=== PATIENT | female | born 1955 | race Caucasian/White ===

== ENCOUNTER 2022-01-28 14:03 | Inpatient (IN) | payer OTHER ==
[~2022-01-28] VITALS: Ht 162.6 cm; Wt 79.4 kg
[2022-01-28 14:41] VITALS: BP 134/79
--- NOTE | 2022-01-28 18:57 | NUR ---
66F presents to ED with c/o generalized weakness and dizziness x4days. Pt reports PCP recently changed her Rx to Lasix, after med change, pt states she has been feeling weak. Pt reports intermittent, throbbing like, 7/10 pain to feet bilaterally. Upon assessment, feet appear red, no swelling noted. Pt placed on bedside monitor, bed at lowest position, side rails x1.
--- NOTE | 2022-01-28 19:20 | NUR ---
Pt report given to ROQUE Daley. Transfer of care at this time.
[2022-01-28] MEDS ORDERED: ACETAMINOPHEN EXTRA STRENGTH 500 MG TAB PO ONE (19:45)
[2022-01-28 20:06] LABS: BASOPHILS % (AUTO) 0.3 % (0.0-2.0); EOSINOPHILS % (AUTO) 0.2 % (0.0-4.0); HEMOGLOBIN 10.9 g/dL (12.0-16.0); LYMPHOCYTES # (AUTO) 1.1 K/uL (2.5-16.5); LYMPHOCYTES % (AUTO) 32.4 % (20.5-51.1); MEAN CORPUSCULAR HEMOGLOBIN 27 pg (27-31); MEAN CORPUSCULAR HGB CONC 33 g/dL (33-37); MEAN CORPUSCULAR VOLUME 82.6 fL (80-94); MONOCYTES # (AUTO) 0.7 K/uL (0.8-1.0); NEUTROPHILS # (AUTO) 1.5 K/uL (1.8-7.7); NEUTROPHILS % (AUTO) 45.1 % (42.2-75.2); PLATELET COUNT (AUTO) 230 K/uL (140-450); RED CELL DISTRIBUTION WIDTH 15.3 % (11.6-13.7); WHITE BLOOD COUNT (AUTO) 3.3 K/uL (4.8-10.8)
[2022-01-28 20:23] LABS: ALBUMIN 3.4 g/dL (3.4-5.0); ANION GAP 8.7 (8-16); ASPARTATE AMINOTRANSFERASE 37 U/L (15-37); CARBON DIOXIDE 36.9 mmol/L (21-32); CHLORIDE 87 mmol/L (98-107); CREATININE 0.8 mg/dL (0.6-1.3); GFR ARICAN-AMERICAN 92 mL/min (>90); GLUCOSE 103 mg/dL (74-106); MAGNESIUM 1.3 mg/dL (1.8-2.4); SODIUM SERUM 130 mmol/L (136-145); TOTAL BILIRUBIN 0.6 mg/dL (0.0-1.0); UREA NITROGEN, BLOOD 16 mg/dL (7-18)
[2022-01-28 20:24] LABS: POTASSIUM 2.6 mmol/L (3.5-5.1)
--- NOTE | 2022-01-28 20:25 | NUR ---
POTASSIUM OF 2.6 CRITICAL LAB VALUE HAS BEEN RECIEVED FROM LAB AND DR. MEJIA HAS BEEN UPDATED ON CRITICAL LAB VALUE. PROBABLE ADMISSION WILL BE NECESSARY PER DR. MEJIA.
[2022-01-28] MEDS ORDERED: POTASSIUM CHLORIDE 10 MEQ TABER PO ONE (20:40)
[2022-01-28] MEDS ORDERED: KCL 20 MEQ/WATER INJ PREMIX 100 ML IV ONE (20:40)
--- NOTE | 2022-01-28 20:54 | NUR ---
PT. REFUSED IV POTASSIUM BECAUSE IT MACKEY HER ARM TOO MUCH. DR. MEJIA AWARE.
--- NOTE | 2022-01-28 21:03 | NUR ---
PT WAS SWABBED AND TAKEN TO LAB
[2022-01-28] MEDS ORDERED: FURO-570 PO (23:59)
[2022-01-28] MEDS ORDERED: LEVO0.1331 PO (23:59)
[2022-01-28] MEDS ORDERED: EZET10TA14 PO (23:59)
[2022-01-28] MEDS ORDERED: ATOR20TA PO (23:59)
[2022-01-28] MEDS ORDERED: QUET400T PO (23:59)
[2022-01-28] MEDS ORDERED: POTA10TA70 PO (23:59)
[2022-01-28] MEDS ORDERED: PRAM0.5T4 PO (23:59)
[2022-01-28] MEDS ORDERED: LEVO0.155 PO (23:59)
[2022-01-28] MEDS ORDERED: CETI1SOL12 PO (23:59)
[2022-01-28] MEDS ORDERED: HYDR-5080 PO (23:59)
[2022-01-28] MEDS ORDERED: ESCI20TA PO (23:59)
[2022-01-29] MEDS ORDERED: ACETAMINOPHEN 325 MG TAB PO PRN (00:50)
[2022-01-29] MEDS ORDERED: DOCUSATE SODIUM 100 MG GELCAP PO PRN (00:50)
[2022-01-29] MEDS ORDERED: POTASSIUM CHLORIDE 10 MEQ TABER PO PRN ×2 (00:50→15:10)
[2022-01-29] MEDS ORDERED: SODIUM PHOS / POTASSIUM PHOS 1 PKT PDR PO PRN (00:50)
[2022-01-29] MEDS ORDERED: NACL 0.9% 1,000 ML IV SCH (00:50)
[2022-01-29] MEDS ORDERED: ONDANSETRON 4 MG/2 ML VIAL IM/IVP PRN (00:50)
[2022-01-29] MEDS ORDERED: MAGNESIUM OXIDE 400 MG TAB PO PRN (00:50)
[2022-01-29] MEDS ORDERED: LEVOTHYROXINE 0.075 MG TAB PO SCH (06:30)
[2022-01-29] MEDS ORDERED: LEVOTHYROXINE 0.05 MG TAB ONE (06:35)
[2022-01-29] MEDS ORDERED: LEVOTHYROXINE 0.1 MG TAB ONE (06:35)
[2022-01-29] MEDS: MORPHINE SULFATE 2 MG/ML SYR IVP PRN ×3 (06:40→20:37)
[2022-01-29 08:06] LABS: BASOPHILS % (AUTO) 0.6 % (0.0-2.0); EOSINOPHILS % (AUTO) 0.7 % (0.0-4.0); HEMATOCRIT 34.1 % (36-48); HEMOGLOBIN 11.5 g/dL (12.0-16.0); MEAN CORPUSCULAR HEMOGLOBIN 28 pg (27-31); MEAN CORPUSCULAR HGB CONC 34 g/dL (33-37); MEAN CORPUSCULAR VOLUME 83.5 fL (80-94); MONOCYTES # (AUTO) 0.8 K/uL (0.8-1.0); MONOCYTES % (AUTO) 23.9 % (1.7-9.3); NEUTROPHILS # (AUTO) 1.3 K/uL (1.8-7.7); NEUTROPHILS % (AUTO) 42.8 % (42.2-75.2); PLATELET COUNT (AUTO) 222 K/uL (140-450); RED BLOOD CELL COUNT(AUTO) 4.08 MIL/uL (4.20-5.40); RED CELL DISTRIBUTION WIDTH 15.1 % (11.6-13.7); WHITE BLOOD COUNT (AUTO) 3.1 K/uL (4.8-10.8)
[2022-01-29] MEDS: ESCITALOPRAM 20 MG TAB PO SCH (08:10)
[2022-01-29] MEDS: ATORVASTATIN 20 MG TAB PO SCH (08:10)
[2022-01-29] MEDS: HYDROcodone/APAP 5/325 MG 1 TAB TAB PO PRN ×3 (08:11→21:45)
[2022-01-29] MEDS: PANTOPRAZOLE 40 MG TABEC PO SCH (08:12)
[2022-01-29 09:10] LABS: MAGNESIUM 1.6 mg/dL (1.8-2.4); THYROID STIMULATING HORMONE 0.02 uIU/mL (0.34-3.74)
[2022-01-29] MEDS: EZETIMIBE 10 MG TAB PO SCH (09:47)
[2022-01-29] MEDS: MAGNESIUM OXIDE 400 MG TAB PO SCH ×2 (10:21→12:59)
[2022-01-29 12:44] LABS: ANION GAP 16.8 (8-16); CARBON DIOXIDE 30.8 mmol/L (21-32); CREATININE 0.7 mg/dL (0.6-1.3)
--- NOTE | 2022-01-29 12:52 | NUR ---
PT KEEPS ASKING LASIX FOR ROUTINE USE. DR. FOSS TALKED WITH PT FOR HOLDING THE LASIX.
[2022-01-29 12:53] LABS: POTASSIUM 2.6 mmol/L (3.5-5.1)
--- NOTE | 2022-01-29 13:00 | NUR ---
K+ LOW STILL. K-RIDER 20MEQ GIVEN PO. LONG WITH MG+ PO.
[2022-01-29] MEDS ORDERED: POTASSIUM CHLORIDE 40 MEQ, LIDOCAINE 1% 25 MG in NACL 0.9% 250 ML IV SCH (14:00)
[2022-01-29] MEDS ORDERED: SENNA 8.6 MG TAB PO PRN (15:15)
[2022-01-29] MEDS ORDERED: QUEtiapine FUMARATE 100 MG TAB PO SCH (21:00)
[2022-01-29] MEDS ORDERED: PRAMIPEXOLE 0.5 MG TAB PO SCH (21:00)
[2022-01-30] MEDS ORDERED: LEVOTHYROXINE 0.1 MG TAB PO SCH ×2 (06:30)
[2022-01-30] MEDS ORDERED: LEVOTHYROXINE 0.025 MG, LEVOTHYROXINE 0.1 MG PO SCH ×2 (06:30)
[2022-01-30] MEDS ORDERED: LEVOTHYROXINE 0.05 MG TAB ONE ×2 (06:47→06:48)
[2022-01-30] MEDS ORDERED: LEVOTHYROXINE 0.1 MG TAB ONE (06:47)
[2022-01-30] MEDS: MORPHINE SULFATE 2 MG/ML SYR IVP PRN (07:01)
[2022-01-30] MEDS: HYDROcodone/APAP 5/325 MG 1 TAB TAB PO PRN (07:02)
--- NOTE | 2022-01-30 07:17 | NUR ---
Pt report given to ROQUE POLLOCK. Transfer of care at this time.
[2022-01-30 07:44] LABS: HEMATOCRIT 33.8 % (36-48); HEMOGLOBIN 11.1 g/dL (12.0-16.0); MEAN CORPUSCULAR HEMOGLOBIN 28 pg (27-31); MEAN CORPUSCULAR HGB CONC 33 g/dL (33-37); MEAN CORPUSCULAR VOLUME 84.4 fL (80-94); PLATELET COUNT (AUTO) 216 K/uL (140-450); RED CELL DISTRIBUTION WIDTH 15.7 % (11.6-13.7); WHITE BLOOD COUNT (AUTO) 2.8 K/uL (4.8-10.8)
[2022-01-30 08:10] LABS: ANION GAP 9.1 (8-16); CARBON DIOXIDE 35.6 mmol/L (21-32); CREATININE 0.9 mg/dL (0.6-1.3); POTASSIUM 3.7 mmol/L (3.5-5.1)
[2022-01-30 08:29] LABS: BASOPHILS % (MANUAL) 0 % (0-2); BLASTS, MANUAL % 0 % (0-0); EOSINOPHILS % (MANUAL) 1 % (0-4); LYMPHOCYTES % (MANUAL) 52 % (20-46); METAMYELOCYTES % 0 % (0-0); MONOCYTES % (MANUAL) 25 % (5-12); MYELOCYTES % 0 % (0-0); OTHER CELLS,MANUAL % 0 (0-0); PROMYELOCYTES % 0 % (0-0)
[2022-01-30 08:30] LABS: BUFFY COAT SMEAR PREP N
[2022-01-30] MEDS: PANTOPRAZOLE 40 MG TABEC PO SCH ×2 (09:00→10:10)
[2022-01-30] MEDS: DOCUSATE SODIUM 100 MG GELCAP PO SCH ×2 (09:00→10:11)
[2022-01-30] MEDS: EZETIMIBE 10 MG TAB PO SCH ×2 (09:00→10:09)
[2022-01-30] MEDS: ATORVASTATIN 20 MG TAB PO SCH ×2 (09:00→10:10)
[2022-01-30] MEDS: ESCITALOPRAM 20 MG TAB PO SCH ×2 (09:00→10:10)
--- NOTE | 2022-01-30 10:35 | NUR ---
PATIENT HAS BEEN SCREENED AND CATEGORIZED MODERATE NUTRITION RISK. PATIENT WILL BE SEEN WITHIN 3-5 DAYS OF ADMISSION. 02/01/[address]
[2022-01-30] MEDS ORDERED: FURO-572 PO (13:14)
[2022-01-30] MEDS ORDERED: LEVO0.1331 PO (13:14)
[2022-01-30] MEDS ORDERED: SPIR50TA4 PO (13:14)
[2022-01-30] MEDS ORDERED: POTA10TA70 PO (13:46)
[2022-01-30 14:44] VITALS: BP 115/63
[2022-01-30 15:16] VITALS: BP 120/78
--- NOTE | 2022-01-30 15:18 | NUR ---
RECEIVED D/C ORDERS BY . PT IS A/OX4. NO DISTRESS NOTED. VITAL SIGNS WNL. D/C IV LINE. GAVE AND EXPLAINED D/C INSTRUCTIONS. D/C HOME. CALLED UBER FOR PT. WILL WILL BE WAITING IN ER LOBBY UNTIL EXTRUDING PRESS ADJUSTER.
== END 2022-01-30 15:18 | disposition home or self-care (01) | DRG 641 ==
LOC: MED 14:03 → MTU 21:35
PROVIDERS: ADMIT Hospitalist; ATTEND Hospitalist
DX: E87.6 Hypokalemia (principal); E87.1 Hypo-osmolality and hyponatremia; E86.0 Dehydration; E83.42 Hypomagnesemia; F31.9 Bipolar disorder, unspecified; Z20.822 Contact with and (suspected) exposure to COVID-19; I50.9 Heart failure, unspecified; E03.9 Hypothyroidism, unspecified; E78.00 Pure hypercholesterolemia, unspecified; G25.81 Restless legs syndrome; Z83.3 Family history of diabetes mellitus; Z82.5 Family history of asthma and other chronic lower respiratory diseases; Z82.49 Family history of ischemic heart disease and other diseases of the circulatory system; Z80.8 Family history of malignant neoplasm of other organs or systems; Z80.42 Family history of malignant neoplasm of prostate; Z80.3 Family history of malignant neoplasm of breast
CPT/HCPCS: 36415; 71045; 80048; 80053; 83735; 83880; 84100; 84443; 84484; 85025; 93005; 99291; J2001; J2270; J3480; J7030

== ENCOUNTER 2022-02-18 03:56 | Inpatient (IN) | payer OTHER ==
[~2022-02-18] VITALS: Ht 162.6 cm; Wt 63.5 kg
[~2022-02-18 03:56] MED LIST: ATOR20TA PO; CETI1SOL12 PO; ESCI20TA PO; EZET10TA14 PO; FURO-572 PO; HYDR-5080 PO; LEVO0.1331 PO; POTA10TA70 PO; PRAM0.5T4 PO; QUET400T PO; SPIR50TA4 PO
[2022-02-18 03:57] VITALS: BP 159/116
--- NOTE | 2022-02-18 03:57 | NUR ---
AMADO ALS TO BED #5
[2022-02-18] MEDS ORDERED: HYDROcodone/APAP 5/325 MG 1 TAB TAB PO ONE (04:00)
[2022-02-18] MEDS ORDERED: KETOROLAC 30 MG/ML VIAL IVP ONE (04:00)
--- NOTE | 2022-02-18 04:12 | NUR ---
pt. went to CT.
--- NOTE | 2022-02-18 04:20 | NUR ---
pt. back from CT.
[2022-02-18 05:31] LABS: ANION GAP 11.5 (8-16); BASOPHILS % (AUTO) 0.3 % (0.0-2.0); CARBON DIOXIDE 31.2 mmol/L (21-32); CREATININE 0.9 mg/dL (0.6-1.3); EOSINOPHILS % (AUTO) 0.3 % (0.0-4.0); HEMATOCRIT 33.5 % (36-48); HEMOGLOBIN 10.7 g/dL (12.0-16.0); LYMPHOCYTES # (AUTO) 0.9 K/uL (2.5-16.5); LYMPHOCYTES % (AUTO) 7.3 % (20.5-51.1); MEAN CORPUSCULAR HEMOGLOBIN 26 pg (27-31); MEAN CORPUSCULAR HGB CONC 32 g/dL (33-37); MEAN CORPUSCULAR VOLUME 82.5 fL (80-94); MONOCYTES # (AUTO) 0.7 K/uL (0.8-1.0); MONOCYTES % (AUTO) 6.2 % (1.7-9.3); NEUTROPHILS % (AUTO) 85.9 % (42.2-75.2); PLATELET COUNT (AUTO) 357 K/uL (140-450); POTASSIUM 3.7 mmol/L (3.5-5.1); RED BLOOD CELL COUNT(AUTO) 4.06 MIL/uL (4.20-5.40); RED CELL DISTRIBUTION WIDTH 15.5 % (11.6-13.7); WHITE BLOOD COUNT (AUTO) 11.6 K/uL (4.8-10.8)
--- NOTE | 2022-02-18 05:32 | NUR ---
LABS OBTAINED AND SENT TO LAB
--- NOTE | 2022-02-18 05:37 | NUR ---
66YR OLD FEMALE BIB EMS C/O LOWER BACK PAIN. NO TRAUMA OR INJURY PT HAS CHRONIC BACK PAIN. 12/08 SHARP PAIN. PT IS A&OX4. ON BEDSIDE MONITOR.
[2022-02-18] MEDS ORDERED: MAG SULF 2000 MG/WATER PREMIX 50 ML IV ONE (06:20)
[2022-02-18] MEDS ORDERED: diazePAM 5 MG TAB PO ONE (06:25)
--- NOTE | 2022-02-18 06:36 | NUR ---
PT WILL BE ADMITED TO HOSPITAL. ORDERS PENDING. COVID SWAB COLLECTED AND SENT TO LAB
--- NOTE | 2022-02-18 07:25 | NUR ---
Report received from RAMYA Pina for transfer of care.
--- NOTE | 2022-02-18 09:07 | NUR ---
med recon complete
--- NOTE | 2022-02-18 09:20 | NUR ---
Patient was assisted to the restroom. Patient is unable to urinate.
--- NOTE | 2022-02-18 09:27 | NUR ---
Dr. Finney, admitting doctor, evaluating patient at bedside.
--- NOTE | 2022-02-18 09:28 | NUR ---
Verbal orders from Dr. Finney for Morphine 2 mg Q6 IVP. Orders carried out.
--- NOTE | 2022-02-18 09:56 | NUR ---
Patient will be admitted to care of Dr Finney. Admited to med surg. Will go to [id number]. Belongings list completed. Report to era BUI.
--- NOTE | 2022-02-18 10:06 | NUR ---
PT ARRIVED ONTO UNIT VIA WHEELCHAIR, ACCOMPANIED BY ER NURSE. PT AMBULATED FROM WHEELCHAIR TO BED INDEPENDENTLY. PT IS ALERT AND ORIENTED X4, ABLE TO VERBALIZE NEEDS, ABLE TO FOLLOW COMMANDS. PT IS ON ROOM AIR, RESPIRATIONS ARE EVEN AND UNLABORED. NO SIGNS OF DISTRESS NOTED. NO COMPLAINTS OF SOB. ABD IS NONTENDER, NONDISTENDED. PT IS ON REGULAR DIET. PT HAS FULL ROM TO UPPER AND LOWER EXTREMITIES. SKIN IS WARM, DRY, AND INTACT. PT HAS IV TO L HAND, 20G. MRSA SWAB DONE, VS TAKEN. BED IN LOWEST POSITION. CALL LIGHT WITHIN REACH.
[2022-02-18 10:08] VITALS: BP 125/67
--- NOTE | 2022-02-18 10:08 | NUR ---
Patient's Plan of Care was discussed and reviewed with VERIFIER: FALLON ALONZO
[2022-02-18] MEDS ORDERED: DOCUSATE SODIUM 100 MG GELCAP PO PRN (10:10)
[2022-02-18] MEDS ORDERED: ACETAMINOPHEN 325 MG TAB PO PRN (10:10)
[2022-02-18] MEDS ORDERED: guaiFENesin DM 200/20 MG-10 ML 10 ML UDC PO PRN (10:10)
[2022-02-18] MEDS ORDERED: ONDANSETRON 4 MG/2 ML VIAL IM/IVP PRN (10:10)
[2022-02-18] MEDS ORDERED: POTASSIUM CHLORIDE 10 MEQ TABER PO PRN (10:10)
[2022-02-18] MEDS: NACL 0.9% 1,000 ML IV SCH (10:10)
--- NOTE | 2022-02-18 10:10 | NUR ---
PT STATES SHE IS IN SO MUCH PAIN. STATES SHE DID NOT RECEIVE ANY PAIN MEDICATION IN ER. PER ER NURSE, PAIN MEDICATION WAS ADMINISTERED. PT TEACHING ON POSITION CHANGING AND DISTRACTION THERAPY WAS DONE. WILL CONTINUE TO MONITOR.
[2022-02-18] MEDS: methylPREDNISolone SS 40 MG/ML VIAL IVP SCH ×2 (10:15→13:57)
[2022-02-18] MEDS: methocarbamoL 500 MG TAB PO SCH ×2 (10:15→21:14)
--- NOTE | 2022-02-18 10:25 | NUR ---
PT PRESSING CALL LIGHT. TELLING NURSE AGAIN THAT SHE DID NOT GET ANY PAIN MEDICATION. WHEN RE-INFORMING PT THAT SHE WAS GIVEN MEDS IN ER, PT THEN CHANGED THE SUBJECT AND ASKED NURSE FOR A BED BATH AND TO HAVE NURSE WASH PT FACE. SHE THEN ASKED NURSE TO CLEAN UP HER ROOM. WILL CONTINUE TO MONITOR.
[2022-02-18 11:22] LABS: CHOL/HDL RATIO 1.9 (1-4.5); FREE T4 (FREE THYROXINE) 2.14 ng/dL (0.76-1.46); PHOSPHORUS 3.9 mg/dL (2.5-4.9); THYROID STIMULATING HORMONE 0.01 uIU/mL (0.34-3.74)
[2022-02-18] MEDS: SPIRONOLACTONE 50 MG TAB PO SCH (11:45)
[2022-02-18] MEDS: FUROSEMIDE 20 MG TAB PO SCH (11:45)
[2022-02-18 12:00] LABS: PROTHROMBIN TIME 10.2 secs (10.8-13.4)
--- NOTE | 2022-02-18 14:08 | NUR ---
PT ASKING STAFF TO ASK DR TO PLACE WEATHERS CATHETER. WHEN ASKED PT TO WHY SHE WANTS A WEATHERS CATHETER, PT STATES "BECAUSE I DON'T WANT TO GET UP TO USE THE COMMODE. MY BACK HURTS AND IT IS A LOT EASIER TO HAVE A WEATHERS CATHETER". EDUCATED PT REGARDING THE RISKS OF WEATHERS CATHETERIZATION AND POSSIBILITY OF ACCOMPANYING INFECTION. PT STATED "OK I JUST WANTED TO MAKE IT EASY ON MYSELF". PT THEN REQUESTED EXTERNAL CATHETER. PLACED EXTERNAL CATHETER. WILL CONTINUE TO MONITOR.
[2022-02-18 16:00] VITALS: BP 131/77
--- NOTE | 2022-02-18 16:10 | NUR ---
PT CALLING, STATING SHE WANTS TO GET UP TO USE REST ROOM. ATTEMPTED TO ASSIST PT TO REST ROOM, HOWEVER, PT THEN STATED "I CANT GET UP AND GO TO THE BATHROOM. I HAVE PAIN. DONT MAKE ME GET UP". REMINDED PT THAT SHE REQUESTED TO GET UP TO USE REST ROOM, THAT SHE HAD A PURE WIK IN PLACE. PT STATED "YEAH, I FORGOT". WILL CONTINUE TO MONITOR.
--- NOTE | 2022-02-18 17:00 | NUR ---
PT VOIDED USING PUREWIK, 1100 OUT. WILL CONTINUE TO MONITOR.
[2022-02-18 17:36] LABS: APPEARANCE,URINE SL CLOUDY (CLEAR); BILIRUBIN,URINE NEGATIVE (NEGATIVE); BLOOD, URINE 1+ (NEGATIVE); COLOR,URINE YELLOW (YELLOW); LEUKOCYTE ESTERASE ,URINE 3+ (NEGATIVE); NITRITE, URINE POSITIVE (NEGATIVE); PH,URINE 6.5 (5.0-9.0); UGLUCOSE NEGATIVE (NEGATIVE)
[2022-02-18 17:51] LABS: WBC,URINE 16-25 (MOD) /HPF (0-5)
[2022-02-18 17:52] LABS: OTHER CASTS, URINE None Seen /LPF (None Seen)
--- NOTE | 2022-02-18 19:05 | NUR ---
ENDORSED PT TO BOARD CERTIFIED BEHAVIORAL ANALYST NURSE FOR CONTINUITY OF CARE. PT IS STABLE.
--- NOTE | 2022-02-18 19:06 | NUR ---
RECEIVED REPORT FROM DAY SHIFT NURSE FALLON FOR CONTINUITY OF CARE. PT AWAKE, IN BED. RESPIRATIONS EVEN AND UNLABORED ON RA. NO DISTRESS NOTED. NO C/O OF PAIN. PT HAS PUREWICK IN PLACE, DRAINING WELL. IV SITE ON LH G20, INFUSING IVF. CALL LIGHT WITHIN REACH. SAFETY PRECAUTIONS IN PLACE.
[2022-02-18 20:00] VITALS: BP 122/62
--- NOTE | 2022-02-18 20:00 | NUR ---
Patient's Plan of Care was discussed and reviewed with MARBLE INSTALLATION HELPER: GEOFF BELLA
[2022-02-18] MEDS: ZOLPIDEM 5 MG TAB PO PRN (21:14)
--- NOTE | 2022-02-18 21:21 | NUR ---
ADMINISTERED DUE MED. PT STATED, SHE HAS HAVING A HARD TIME SLEEPING AND REQUESTED FOR A SLEEPING PILL. PRN MED ADMINISTERED.
--- NOTE | 2022-02-18 21:53 | NUR ---
SPOKE TO PHARMACIST GERARD REGARDING SOLUMEDROL. PER PHARMACY 1300 SCHEDULED DOSE ENTERED TWICE ON THE COMPUTER. PHARMACY INSTRUCTED TO PUT AN ORDER FOR ADMINISTRATION NOW. AWAITING FOR ORDER VERIFICATION.
[2022-02-18] MEDS ORDERED: methylPREDNISolone SS 40 MG/ML VIAL IVP SCH (21:55)
--- NOTE | 2022-02-19 02:04 | NUR ---
PT SLEEPING. VISIBLE CHEST RISE AND FALL. NO DISTRESS NOTED. SAFETY PRECAUTIONS IN PLACE.
[2022-02-19] MEDS: NACL 0.9% 1,000 ML IV SCH ×2 (02:48→21:00)
[2022-02-19] MEDS: methylPREDNISolone SS 40 MG/ML VIAL IVP SCH ×3 (04:58→21:07)
[2022-02-19] MEDS: HYDROcodone/APAP 7.5/325 MG 1 TAB PO PRN ×2 (05:30→13:25)
--- NOTE | 2022-02-19 05:33 | NUR ---
PT COMPLAINED OF BACK AND BILATERAL LEG PAIN. 08/08. PRN PAIN MED GIVEN ORDERED.
[2022-02-19 06:15] LABS: ANION GAP 13.4 (8-16); CARBON DIOXIDE 28.8 mmol/L (21-32); CREATININE 0.9 mg/dL (0.6-1.3); POTASSIUM 4.2 mmol/L (3.5-5.1)
[2022-02-19] MEDS ORDERED: LEVOTHYROXINE 0.025 MG, LEVOTHYROXINE 0.112 MG PO SCH ×2 (06:30)
[2022-02-19 07:07] LABS: T4 (THYROXINE) 11.2 ug/dL (4.5-12.0)
--- NOTE | 2022-02-19 07:08 | NUR ---
RECEIVED REPORT FROM NIGHTSNEFT NURSE GEOFF FOR CONTINUITY OF CARE. PT IN STABLE CONDITION.
--- NOTE | 2022-02-19 07:08 | NUR ---
GAVE BEDSIDE REPORT TO DAY SHIFT NURSE ALEXIS FOR CONTINUITY OF CARE. ALL NEEDS MET THROUGHOUT SHIFT. PT IS STABLE.
[2022-02-19 07:22] LABS: BASOPHILS % (AUTO) 0.1 % (0.0-2.0); HEMOGLOBIN 10.8 g/dL (12.0-16.0); LYMPHOCYTES # (AUTO) 0.7 K/uL (2.5-16.5); LYMPHOCYTES % (AUTO) 5.4 % (20.5-51.1); MEAN CORPUSCULAR HEMOGLOBIN 26 pg (27-31); MEAN CORPUSCULAR HGB CONC 32 g/dL (33-37); MEAN CORPUSCULAR VOLUME 82.8 fL (80-94); MONOCYTES # (AUTO) 0.2 K/uL (0.8-1.0); MONOCYTES % (AUTO) 1.5 % (1.7-9.3); NEUTROPHILS # (AUTO) 11.6 K/uL (1.8-7.7); PLATELET COUNT (AUTO) 372 K/uL (140-450); RED BLOOD CELL COUNT(AUTO) 4.11 MIL/uL (4.20-5.40); RED CELL DISTRIBUTION WIDTH 15.4 % (11.6-13.7); WHITE BLOOD COUNT (AUTO) 12.5 K/uL (4.8-10.8)
[2022-02-19 08:00] VITALS: BP 138/66
[2022-02-19] MEDS: EZETIMIBE 10 MG TAB PO SCH (08:52)
[2022-02-19] MEDS: ATORVASTATIN 20 MG TAB PO SCH (08:53)
[2022-02-19] MEDS: FUROSEMIDE 20 MG TAB PO SCH (08:53)
[2022-02-19] MEDS: PANTOPRAZOLE 40 MG TABEC PO SCH (08:53)
[2022-02-19] MEDS: SPIRONOLACTONE 50 MG TAB PO SCH (08:54)
[2022-02-19] MEDS: methocarbamoL 500 MG TAB PO SCH ×2 (08:54→21:07)
[2022-02-19] MEDS: ESCITALOPRAM 20 MG TAB PO SCH (08:55)
[2022-02-19] MEDS: QUEtiapine FUMARATE 100 MG TAB PO SCH (08:56)
[2022-02-19] MEDS ORDERED: NON-FORMULARY ITEM (Levothyroxine Sodium* (Synthroid*) 0.137 MG) PO SCH (09:00)
--- NOTE | 2022-02-19 10:05 | NUR ---
PT CALLED COMPLAINING OF RESTLESS LEG SYNDROME, ASKING FOR SOMETHING TO ALLEVIATE IT. PAGED DR. PHAN.
--- NOTE | 2022-02-19 10:30 | NUR ---
PER DR. PHAN, 1MG PO COGENTIN TO BE GIVEN FOR PT'S RESTLESS LEG.
[2022-02-19] MEDS ORDERED: BENZTROPINE 1 MG TAB PO SCH (10:37)
--- NOTE | 2022-02-19 11:06 | NUR ---
PATIENT HAS BEEN SCREENED AND CATEGORIZED LOW NUTRITION RISK. PATIENT WILL BE SEEN WITHIN 7 DAYS OF ADMISSION. 02/25/[address]
[2022-02-19] MEDS: MORPHINE SULFATE 2 MG/ML SYR IVP PRN ×2 (11:46→21:07)
[2022-02-19 12:00] VITALS: BP 112/66
[2022-02-19 16:00] VITALS: BP 110/61
--- NOTE | 2022-02-19 19:11 | NUR ---
DISCHARGE PLANNING PATIENT IS A 66-YEAR-OLD FEMALE ADMITTED ON 02/18/22 AT [facility]/ER DUE TO COMPLAINTS OF INTRACTABLE BACK PAIN. SW MET WITH PATIENT AT BEDSIDE TO DISCUSS AND GATHER PATIENT'S COLLATERAL INFORMATION. PATIENT REPORTED LIVING AT HOME ALONE AND HAVING SUPPORT FROM HER [facility] CAREGIVERS DORIAN AND SHI MCDANIEL WHO CARE FOR HER NEEDS ABOUT 33 HRS PER WEEK. PER PATIENT SHE HAS SUPPORT FROM HER FAMILY BROTHER BRIE RUTHERFORD WHO IS HER POA AND EMERGENCY CONTACT WELL HER MEDICAL DECISION MAKER. PATIENT REPORTED BEEN INDEPENDENT WITH HER DME AT HOME. PATIENT STATED NOT HAVING ADVANCE DIRECTIVES AND WAS NOT INTERESTED ON GETTING INFORMATION FORMS PROVIDED BY SW AT THE TIME OF VISIT. PATIENT REPORTED HAVING A CANE, WALKER,AND A WHEELCHAIR HER DME AND NOT HAVING ANY ISSUES WITH GETTING OR TAKING ANY MEDICATIONS. PATIENT STATED THAT SHE GETS HER PRESCRIPTION MEDICATIONS FORM THE [facility] AT . SW EXPLAINED TO PATIENT THE NEED TO FOLLOW UP WITH AN APPOINTMENT WITH-IN 5-[address] PCP [address] SHARMA EXT. 0 AFTER DISCHARGE FROM [facility]. PATIENT AGREED AND STATED THAT SHE DID HAD AN APPOINTMENT ALREADY SCHEDULED FOR 02/17/2022 BUT HAD TO MISS IT AND SHE WILL BE MAKING HER OWN APPOINTMENT WHEN SHE IS DC FROM [facility]. PATIENT DECLINED FOR SW TO MAKE HER APPOINTMENT AT THE TIME OF MEETING. PATIENT STATED THAT HER CAREGIVER DORIAN WILL BE ASSISTING WITH TRANSPORTATION BACK HOME WHEN SHE IS READY FOR DISCHARGE. SW/LIANG WILL FOLLOW UP WITH PATIENT NEEDED.
--- NOTE | 2022-02-19 19:30 | NUR ---
RECEIVED REPORT FROM DAY SHIFT NURSE HIRO FOR CONTINUITY OF CARE. PATIENT IS A&O X4. PATIENT IS ON ROOM AIR, BREATHING IS NORMAL WITH SYMMETRICAL RISE AND FALL OF CHEST. IV IS A 20G LEFT HAND; RUNNING NS 60. PATIENT IS LYING IN SEMI-FOWLERS POSITION. PATIENT IS AWAKE. BED IS IN LOWEST POSITION, WHEELS LOCKED, CALL LIGHT IN PLACE. WILL CONTINUE TO OBSERVE PATIENT.
[2022-02-19 20:00] VITALS: BP 111/55
--- NOTE | 2022-02-19 21:30 | NUR ---
OBTAINED PATIENT'S 2000 VITALS; VITALS WERE: BP 111/55, HR 73, O2 97%, RR 18, TEMP 96.2. PATIENT REQUESTED MORPHINE FOR 8/10 BACK PAIN. CHECKED PATIENT'S CHART, MORPHINE WAS APPROPRIATE TO ADMINISTER. ADMINISTERED 2100 MEDICATION AND MORPHINE TO PATIENT. PATIENT TOLERATED WELL. BREATHING WAS NORMAL WITH SYMMETRICAL RISE AND FALL OF CHEST. WILL CONTINUE TO OBSERVE PATIENT.
--- NOTE | 2022-02-19 23:00 | NUR ---
PATIENT REQUESTED ASSISTANCE TO THE COMMODE; ASSISTED PATIENT TO COMMODE BUT PATIENT SAID SHE COULDN'T GO BECAUSE IT WAS TO PAINFUL. PATIENT WAS HELPED BACK INTO BED, AND JOSE'S DIAPER IS PLACED ON PATIENT. PATIENT'S BREATHING WAS NORMAL WITH SYMMETRICAL RISE AND FALL OF CHEST. WILL CONTINUE TO OBSERVE PATIENT.
--- NOTE | 2022-02-20 00:30 | NUR ---
PATIENT CALLED AND STATED SHE NEEDED TO BE CHANGED. PATIENT WAS CHANGED WITH THE ASSISTANCE OF NURSE TANYA. WE APPLIED A PURE-WICK TO PATIENT ALONG WITH NEW JOSE'S DIAPER. PATIENT THANKED US FOR CHANGING HER. I WILL CONTINUE TO OBSERVE PATIENT.
[2022-02-20] MEDS: ZOLPIDEM 5 MG TAB PO PRN (00:55)
--- NOTE | 2022-02-20 01:00 | NUR ---
PATIENT CALLED AGAIN AND REQUESTED HER SLEEPING PILL. CHECKED PATIENT BP; BP WAS 138/68 AND HR WAS 68. CHECKED PATIENT'S CHART, AMBIEN WAS APPROPRIATE TO GIVE. MEDICATION ADMINISTERED SUCCESSFULLY WITHOUT DIFFICULTY IN SWALLOWING. WILL CONTINUE TO OBSERVE PATIENT.
--- NOTE | 2022-02-20 03:00 | NUR ---
LOOKED IN ON PATIENT. PATIENT HAD PULLED OFF PURE-WICK, WHICH WAS LYING ON THE FLOOR. THREW PURE-WICK IN THE TRASH AND TURNED OFF SUCTION. PATIENT WAS SLEEPING. BREATHING WAS NORMAL WITH SYMMETRICAL RISE AND FALL OF CHEST. WILL CONTINUE TO OBSERVE PATIENT.
[2022-02-20 04:00] VITALS: BP 150/73
[2022-02-20] MEDS: MORPHINE SULFATE 2 MG/ML SYR IVP PRN ×3 (04:11→12:01)
[2022-02-20] MEDS: methylPREDNISolone SS 40 MG/ML VIAL IVP SCH ×2 (04:28→13:17)
--- NOTE | 2022-02-20 04:29 | NUR ---
OBTAINED 0400 VITALS; VITALS WERE: BP 150/75, HR 75, TEMP 96.0, O2 98%, RR 18. ADMINISTERED 0500 SOLU-MEDROL IVP TO PATIENT AND MORPHINE FOR 8/10 BACK PAIN. MEDICATION ADMINISTERED SUCCESSFULLY WITHOUT ANY ISSUES. BREATHING WAS NORMAL WITH SYMMETRICAL RISE AND FALL OF CHEST. WILL CONTINUE TO OBSERVE PATIENT.
[2022-02-20 05:30] LABS: BASOPHILS % (AUTO) 0.1 % (0.0-2.0); EOSINOPHILS % (AUTO) 0.1 % (0.0-4.0); HEMATOCRIT 32.3 % (36-48); HEMOGLOBIN 10.4 g/dL (12.0-16.0); LYMPHOCYTES # (AUTO) 0.6 K/uL (2.5-16.5); LYMPHOCYTES % (AUTO) 4.5 % (20.5-51.1); MEAN CORPUSCULAR HEMOGLOBIN 27 pg (27-31); MEAN CORPUSCULAR HGB CONC 32 g/dL (33-37); MEAN CORPUSCULAR VOLUME 82.8 fL (80-94); MONOCYTES # (AUTO) 0.3 K/uL (0.8-1.0); MONOCYTES % (AUTO) 2.3 % (1.7-9.3); NEUTROPHILS # (AUTO) 13.4 K/uL (1.8-7.7); PLATELET COUNT (AUTO) 361 K/uL (140-450); RED CELL DISTRIBUTION WIDTH 15.3 % (11.6-13.7); WHITE BLOOD COUNT (AUTO) 14.4 K/uL (4.8-10.8)
--- NOTE | 2022-02-20 06:20 | NUR ---
PATIENT WAS CHANGED WITH THE ASSISTANCE OF NURSE MARTÍNEZ. NEW BEDDING WAS GIVEN AND NEW CHUCKS DIAPER WAS APPLIED. PATIENT TOLERATED CHANGE WELL. WILL CONTINUE TO OBSERVE PATIENT.
[2022-02-20 06:33] LABS: ANION GAP 12.8 (8-16); CREATININE 1.1 mg/dL (0.6-1.3); POTASSIUM 4.8 mmol/L (3.5-5.1)
--- NOTE | 2022-02-20 07:40 | NUR ---
ENDORSED TO DAY SHIFT NURSE MAHNAZ FOR CONTINUITY OF CARE. PATIENT IS STABLE.
--- NOTE | 2022-02-20 07:40 | NUR ---
RECEIVED PT CARE AND REPORT FROM SAPPHIRE NEVAREZ. PT IS RESTING IN BED SEMI-FOWLERS, A&OX4, APPEARS CALM. NO VISIBLE S/S OF DISTRESS OR DISCOMFORT. DENIES SOB AND COMPLAINS OF SOME PAIN AT THIS TIME. STATES THAT SHE WANTS TO SPEAK WITH MD ABOUT PSYCH MEDS AND IS ASKING FOR COGENTIN. INFORMED PATIENT THAT COGENTIN IS SCHEDULED TO BE ADMINISTERED WITH 0900 MEDS. PLACED CALL LIGHT WITHIN REACH, ALL NEEDS MET AT THIS TIME.
--- NOTE | 2022-02-20 08:30 | NUR ---
TEXTED DR. PHAN TO REPORT INCREASE IN WBC COUNT FROM 12.5 TO 14.4 THIS MORNING WITH AM LABS.
[2022-02-20] MEDS ORDERED: BENZTROPINE 1 MG TAB PO SCH (09:00)
[2022-02-20] MEDS: HYDROcodone/APAP 7.5/325 MG 1 TAB PO PRN ×2 (09:13→13:17)
[2022-02-20] MEDS: ATORVASTATIN 20 MG TAB PO SCH (09:13)
[2022-02-20] MEDS: QUEtiapine FUMARATE 100 MG TAB PO SCH (09:14)
[2022-02-20] MEDS: EZETIMIBE 10 MG TAB PO SCH (09:14)
[2022-02-20] MEDS: SPIRONOLACTONE 50 MG TAB PO SCH (09:15)
[2022-02-20] MEDS: FUROSEMIDE 20 MG TAB PO SCH (09:15)
[2022-02-20] MEDS: ESCITALOPRAM 20 MG TAB PO SCH (09:15)
[2022-02-20] MEDS: methocarbamoL 500 MG TAB PO SCH (09:15)
[2022-02-20] MEDS: PANTOPRAZOLE 40 MG TABEC PO SCH (09:16)
[2022-02-20] MEDS ORDERED: METH-1681 PO (11:51)
[2022-02-20] MEDS ORDERED: COG1 PO (11:51)
[2022-02-20] MEDS: NACL 0.9% 1,000 ML IV SCH (13:17)
[2022-02-20 14:56] VITALS: BP 123/71
== END 2022-02-20 16:45 | disposition home or self-care (01) | DRG 551 ==
LOC: MED 03:56 → MMU 08:49
PROVIDERS: ADMIT Family Medicine; ATTEND Family Medicine
DX: M51.36 Other intervertebral disc degeneration, lumbar region (principal); R65.11 Systemic inflammatory response syndrome (SIRS) of non-infectious origin with acute organ dysfunction; E83.42 Hypomagnesemia; E03.9 Hypothyroidism, unspecified; E78.5 Hyperlipidemia, unspecified; Z20.822 Contact with and (suspected) exposure to COVID-19; G62.9 Polyneuropathy, unspecified; I11.0 Hypertensive heart disease with heart failure; I50.9 Heart failure, unspecified; E05.90 Thyrotoxicosis, unspecified without thyrotoxic crisis or storm; M43.16 Spondylolisthesis, lumbar region; M54.30 Sciatica, unspecified side
CPT/HCPCS: 36415; 71045; 72131; 76536; 80048; 81001; 82150; 83036; 83690; 83735; 83880; 84100; 84436; 84439; 84443; 84479; 85025; 85610; 85730; 87081; 87086; 96365; 96366; 96375; 97163-GP; 97530; 99285; J1885; J2270; J2920; J3475; Q0092

== ENCOUNTER 2022-09-02 07:46 | Inpatient (IN) | payer OTHER ==
[~2022-09-02] VITALS: Ht 157.5 cm; Wt 75.7 kg
[~2022-09-02 07:46] MED LIST changes: +BENZ1TAB24 PO; -CETI1SOL12 PO; +METH-1681 PO
[2022-09-02 07:47] VITALS: BP 127/80; PULSE 100; RESP 17; TEMP 97.7; O2SAT 97
--- NOTE | 2022-09-02 08:50 | NUR ---
transfered from [facility] to bed 11 by HAIR
--- NOTE | 2022-09-02 08:52 | NUR ---
Ultrasound at bedside.
[2022-09-02 09:28] LABS: BASOPHILS % (AUTO) 0.5 % (0.0-2.0); EOSINOPHILS % (AUTO) 0.6 % (0.0-4.0); HEMATOCRIT 37.4 % (36-48); HEMOGLOBIN 12.2 g/dL (12.0-16.0); LYMPHOCYTES # (AUTO) 1.2 K/uL (2.5-16.5); LYMPHOCYTES % (AUTO) 15.1 % (20.5-51.1); MEAN CORPUSCULAR HEMOGLOBIN 26 pg (27-31); MEAN CORPUSCULAR HGB CONC 33 g/dL (33-37); MEAN CORPUSCULAR VOLUME 79.6 fL (80-94); MONOCYTES # (AUTO) 0.6 K/uL (0.8-1.0); MONOCYTES % (AUTO) 7.2 % (1.7-9.3); NEUTROPHILS # (AUTO) 5.9 K/uL (1.8-7.7); NEUTROPHILS % (AUTO) 76.6 % (42.2-75.2); PLATELET COUNT (AUTO) 353 K/uL (140-450); RED BLOOD CELL COUNT(AUTO) 4.71 MIL/uL (4.20-5.40); WHITE BLOOD COUNT (AUTO) 7.6 K/uL (4.8-10.8)
--- NOTE | 2022-09-02 09:44 | NUR ---
pt wheeled to xray
[2022-09-02] MEDS ORDERED: ONDANSETRON 4 MG/2 ML VIAL IVP ONE (09:45)
[2022-09-02] MEDS ORDERED: MORPHINE SULFATE 4 MG/ML SYR IVP ONE (09:45)
[2022-09-02 10:05] LABS: ALBUMIN 3.4 g/dL (3.4-5.0); ANION GAP 6.9 (8-16); ASPARTATE AMINOTRANSFERASE 55 U/L (15-37); CARBON DIOXIDE 24.7 mmol/L (21-32); CHLORIDE 114 mmol/L (98-107); GFR ARICAN-AMERICAN 71 mL/min (>90); GLUCOSE 110 mg/dL (74-106); MAGNESIUM 1.9 mg/dL (1.8-2.4); PHOSPHORUS 3.9 mg/dL (2.5-4.9); POTASSIUM 4.6 mmol/L (3.5-5.1); SODIUM SERUM 141 mmol/L (136-145); TOTAL BILIRUBIN 0.5 mg/dL (0.0-1.0); UREA NITROGEN, BLOOD 19 mg/dL (7-18)
[2022-09-02] MEDS ORDERED: LACTATED RINGERS 1,000 ML IV STA (11:22)
--- NOTE | 2022-09-02 12:10 | NUR ---
2ND PAGE FOR ADMISSION
[2022-09-02] MEDS ORDERED: ACETAMINOPHEN 325 MG TAB PO PRN (12:25)
[2022-09-02] MEDS: NACL 0.9% 1,000 ML IV SCH ×2 (13:29→21:59)
--- NOTE | 2022-09-02 15:36 | NUR ---
PATIENT HAS BEEN SCREENED AND CATEGORIZED LOW NUTRITION RISK. PATIENT WILL BE SEEN WITHIN 7 DAYS OF ADMISSION. 09/09/[address]
[2022-09-02 16:00] VITALS: BP 144/74; PULSE 103; PULSE 91; RESP 18; RESP 19; TEMP 98.5; O2SAT 98
--- NOTE | 2022-09-02 16:00 | NUR ---
RECEIVED PT FROM PRINT LINE INSPECTOR, VIA OLGA, PT IS AWAKE, ALERT AND ORIENTED, LYING ON THE BED WITH IV LINE NOTED ON THE LEFT AC G/. 20 WITH IVF NS INFUSING AT 125ML/HR, NO SIGN OF DISTRESS NOTED AND WILL CONTINUE TO MONITOR PT.
--- NOTE | 2022-09-02 16:00 | NUR ---
Patient will be admitted to care of MD MARGARETTE. Admited to TELEMETRY. Will go to room 125A. Belongings list completed. Report to ROQUE SAMSON.
--- NOTE | 2022-09-02 17:00 | NUR ---
STRAIGHT CATHETERIZATION WAS DONE TO PT BUT NO URINE OUTPUT NOTED, WILL NOTIFY .
--- NOTE | 2022-09-02 17:10 | NUR ---
INFORMED DR. MERAZ THAT THE BLADDER SCAN SHOWED 600ML OF URINE IN THE BLADDER, GAVE A TELEPHONE ORDER TO INSERT WEATHERS CATHETER.
--- NOTE | 2022-09-02 17:40 | NUR ---
INSERTED A WEATHERS CATHETER BUT STILL NO URINE OUTPUT WAS NOTED.
--- NOTE | 2022-09-02 19:30 | NUR ---
RECEIVED PT FROM DAY RN FOR CONTINUITY OF CARE. PT IS AWAKE, ALERT AND ORIENTED X 4, LYING ON THE BED WITH IV LINE NOTED ON THE LEFT AC G/. 20 WITH IVF NS INFUSING AT 150ML/HR, WEATHERS IN PLACE. NO OUTPUT NOTED. WILL CONTINUE TO MONITOR.NO SIGN OF DISTRESS NOTED. ALL PRECAUTIONS IN PLACE.CALL LIGHT WITHIN REACH.WILL CONTINUE TO MONITOR PT.
--- NOTE | 2022-09-02 19:30 | NUR ---
ENDORSED PT TO NIGHT RN, FOR CONTINUITY OF CARE, PT IS STABLE AT THIS TIME.
[2022-09-02 20:00] VITALS: BP 141/65; PULSE 103; PULSE 87; PULSE 99; RESP 18; TEMP 97.3; O2SAT 98
--- NOTE | 2022-09-02 21:00 | NUR ---
PT WAS TAKEN TO CT VIA [facility].
[2022-09-02] MEDS: HYDROcodone/APAP 5/325 MG 1 TAB TAB PO PRN (21:58)
--- NOTE | 2022-09-02 22:30 | NUR ---
RECEIVED CALL FROM RADIOLOGY. WEATHERS IS NOT IN PLACE AND BLADDER IS DISTENDED.
--- NOTE | 2022-09-02 23:00 | NUR ---
WEATHERS WAS SUCCESSFULLY PLACED. DRAINING CLEAR YELLOW URINE. SAMPLE WAS COLLECTED AND SENT TO LAB.
[2022-09-02 23:11] LABS: APPEARANCE,URINE CLEAR (CLEAR); BILIRUBIN,URINE NEGATIVE (NEGATIVE); BLOOD, URINE TRACE-I (NEGATIVE); COLOR,URINE YELLOW (YELLOW); LEUKOCYTE ESTERASE ,URINE NEGATIVE (NEGATIVE); NITRITE, URINE NEGATIVE (NEGATIVE); UGLUCOSE NEGATIVE (NEGATIVE)
[2022-09-03] VITALS: BP 147/69; PULSE 105; PULSE 94; RESP 18; TEMP 98; O2SAT 98
--- NOTE | 2022-09-03 02:30 | NUR ---
PT ASLEEP. NO S/SX OF DISTRESS NOTED. BREATHING EVEN AND UNLABORED. WILL CONTINUE TO MONITOR
[2022-09-03 04:00] VITALS: BP 125/69; PULSE 71; PULSE 73; RESP 18; TEMP 97.4; O2SAT 100
[2022-09-03] MEDS: NACL 0.9% 1,000 ML IV SCH ×3 (04:25→20:37)
[2022-09-03 05:31] LABS: BASOPHILS % (AUTO) 0.5 % (0.0-2.0); EOSINOPHILS # (AUTO) 0.2 K/uL (0-0.4); EOSINOPHILS % (AUTO) 2.6 % (0.0-4.0); HEMATOCRIT 32.2 % (36-48); HEMOGLOBIN 10.6 g/dL (12.0-16.0); LYMPHOCYTES # (AUTO) 2.4 K/uL (2.5-16.5); LYMPHOCYTES % (AUTO) 32.6 % (20.5-51.1); MEAN CORPUSCULAR HEMOGLOBIN 26 pg (27-31); MEAN CORPUSCULAR HGB CONC 33 g/dL (33-37); MEAN CORPUSCULAR VOLUME 79.7 fL (80-94); MONOCYTES # (AUTO) 0.7 K/uL (0.8-1.0); MONOCYTES % (AUTO) 9.9 % (1.7-9.3); NEUTROPHILS % (AUTO) 54.4 % (42.2-75.2); PLATELET COUNT (AUTO) 323 K/uL (140-450); RED BLOOD CELL COUNT(AUTO) 4.04 MIL/uL (4.20-5.40); WHITE BLOOD COUNT (AUTO) 7.3 K/uL (4.8-10.8)
[2022-09-03 06:06] LABS: ANION GAP 11.8 (8-16); CARBON DIOXIDE 27.6 mmol/L (21-32); CREATININE 0.8 mg/dL (0.6-1.3); POTASSIUM 4.4 mmol/L (3.5-5.1)
--- NOTE | 2022-09-03 06:51 | NUR ---
PT IS STABLE. NO ACUTE EVENTS THROUGHOUT THE NIGHT. ALL NEEDS MET. NO S/SX OF DISTRESS AT THE MOMENT. ALL PRECAUTIONS IN PLACE. CALL LIGHT WITHIN REACH. WILL ENDORSE TO MORNING SHIFT NURSE.
--- NOTE | 2022-09-03 07:41 | NUR ---
GOT REPORT FROM THE NIGHT NURSE, PT AWAKE DISCUSSED POC.[email or web address]
[2022-09-03 08:00] VITALS: BP 123/74; PULSE 85; PULSE 94; RESP 18; TEMP 97.6; O2SAT 97
[2022-09-03] MEDS: HYDROcodone/APAP 5/325 MG 1 TAB TAB PO PRN ×2 (11:14→17:58)
--- NOTE | 2022-09-03 11:19 | NUR ---
PT REASSURED THAT SHE IS STAYING HERE TODAY, SPOKE WITH CAREGIVER WELL, ALEXIS
--- NOTE | 2022-09-03 11:44 | NUR ---
DC PLANNIN YRS OLD FEMALE PATIENT WAS ADMITTED FROM HOME WITH A DX OF WEAKNESS ,RHABDOMYOLYSIS. PATINT HAS A HX OF PSYCHIATRIC DISORDER, AND CHF. 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 VENOUS DOPPLER NEGATIVE FOR DVT. CT ABD/PELVIC SHOWED MILD HEPATOMEGALY AND DISTENDED URINARY BLADDER. ADMINISTERED IVF, AND CONTINUED HOME MEDS. DC PLAN TO GO HOME WHEN STABLE. CM TO FOLLOW Addendum: 09/04/22 at 3924 by SALONI TA CM RECEIVED ORDER FOR PATIENT CONTINUE HOME HEALTH FOR PT. FAXED ALL PAPERWORK TO [facility] WHO WILL CONTINUE CARE FOR PATIENT ONCE DISCHARGED.
[2022-09-03 12:00] VITALS: BP 123/74; PULSE 85; RESP 18; TEMP 97.6; O2SAT 97
--- NOTE | 2022-09-03 12:32 | NUR ---
PUT PT IN BEDPAN, SISTER AND BROTHER IS VISITING.[email or web address]
--- NOTE | 2022-09-03 14:53 | NUR ---
P.T. NOTES P.T. EVAL COMPLETED; REFER TO EVAL FOR DETAILS.
[2022-09-03 16:00] VITALS: BP 110/67; PULSE 74; RESP 19; TEMP 96.9; O2SAT 97
--- NOTE | 2022-09-03 19:26 | NUR ---
gave report from the night nurse.[email or web address]
--- NOTE | 2022-09-03 19:30 | NUR ---
RECEIVED PT IN STABLE CONDITION FROM AM NURSE FOR CONTINUITY OF CARE
[2022-09-03 20:00] VITALS: BP 103/51; PULSE 84; RESP 18; RESP 19; TEMP 97; O2SAT 97
[2022-09-04] MEDS: HYDROcodone/APAP 5/325 MG 1 TAB TAB PO PRN ×4 (00:35→14:06)
[2022-09-04] MEDS: NACL 0.9% 1,000 ML IV SCH ×2 (04:25→13:20)
--- NOTE | 2022-09-04 07:25 | NUR ---
GOT REPORT FROM THE NIGHT NURSE,PT AWAKE COMPLAIN OF PAIN, [facility] , SHE HAD AT 0650 SO ASSURED HER TO WAIT AND SEE WHEN IT IS TIME FOR PAIN TO BE EFFECTIVE.[email or web address]
[2022-09-04 08:00] VITALS: PULSE 84; RESP 18; O2SAT 98
[2022-09-04] MEDS ORDERED: amLODIPine 5 MG TAB PO SCH (09:00)
[2022-09-04 09:30] VITALS: BP 122/71; PULSE 84; RESP 18; TEMP 98.4; O2SAT 98
--- NOTE | 2022-09-04 10:09 | NUR ---
pt is sleeping , looks comfortable, in room air no SOB. [email or web address]
--- NOTE | 2022-09-04 12:45 | NUR ---
IS WITH PATIENT. SO ALSO THE BROTHER AND THE SISTER.[email or web address]
--- NOTE | 2022-09-04 13:28 | NUR ---
pt on the phone . [email or web address]
--- NOTE | 2022-09-04 14:27 | NUR ---
Film Painter FINANCE ADMIN conducted a discharge planning assessment. Please refer to the notes.
[2022-09-04 16:00] VITALS: BP 118/59; PULSE 88; RESP 16; TEMP 98.2; O2SAT 98
[2022-09-04] MEDS ORDERED: AMLO-3 PO (16:52)
[2022-09-04 17:01] VITALS: BP 118/59; PULSE 88; RESP 16; TEMP 98.2
--- NOTE | 2022-09-04 18:02 | NUR ---
pt discharged home, discharge instruction is given, Horn catheter, removed 1800 output empted. IV and ID band removed, pt left unit by w/c escorted by two visitors and nurse. transferred pt to car.[email or web address]
== END 2022-09-04 17:50 | disposition home or self-care (01) | DRG 552 ==
LOC: MED 07:46 → OBSVTOIN 12:48 → MTU 12:48 → INTOOBSV 12:48 → MMU 14:52
PROVIDERS: ADMIT Student in an Organized Health Care Education/Training Program; ATTEND Student in an Organized Health Care Education/Training Program
DX: S32.10XA Unspecified fracture of sacrum, initial encounter for closed fracture (principal); M62.82 Rhabdomyolysis; I50.9 Heart failure, unspecified; F99 Mental disorder, not otherwise specified; M51.36 Other intervertebral disc degeneration, lumbar region; E78.5 Hyperlipidemia, unspecified; E05.90 Thyrotoxicosis, unspecified without thyrotoxic crisis or storm; W18.39XA Other fall on same level, initial encounter; D64.9 Anemia, unspecified; I11.0 Hypertensive heart disease with heart failure; E86.0 Dehydration; R16.0 Hepatomegaly, not elsewhere classified; K44.9 Diaphragmatic hernia without obstruction or gangrene; I70.0 Atherosclerosis of aorta; Z85.828 Personal history of other malignant neoplasm of skin; Y93.89 Activity, other specified; Y92.89 Other specified places as the place of occurrence of the external cause; Y99.8 Other external cause status
CPT/HCPCS: 36415; 73502; 80048; 80053; 81001; 82550; 82553; 83735; 84100; 85025; 87081; 93971; 96361; 96374; 96375; 97110; 97112; 97116; 97530; 99285; C1758; J2270; J2405; Q0092

== ENCOUNTER 2022-09-06 13:46 | Inpatient (IN) | payer OTHER ==
[~2022-09-06] VITALS: Ht 162.6 cm; Wt 63.5 kg
[~2022-09-06 13:46] MED LIST changes: +AMLO-3 PO
--- NOTE | 2022-09-06 13:50 | NUR ---
BIBA BLS TO ER BED 8
--- NOTE | 2022-09-06 13:50 | NUR ---
Patient being evaluated by physician at bedside.
[2022-09-06 13:54] VITALS: BP 143/83; PULSE 87; RESP 18; TEMP 97.7; O2SAT 98
[2022-09-06] MEDS ORDERED: NACL 0.9% 1,000 ML IV ONE ×2 (14:10→17:10)
[2022-09-06 14:12] LABS: BASOPHILS % (AUTO) 0.6 % (0.0-2.0); EOSINOPHILS # (AUTO) 0.1 K/uL (0-0.4); EOSINOPHILS % (AUTO) 0.8 % (0.0-4.0); HEMOGLOBIN 13.1 g/dL (12.0-16.0); LYMPHOCYTES # (AUTO) 1.1 K/uL (2.5-16.5); LYMPHOCYTES % (AUTO) 14.9 % (20.5-51.1); MEAN CORPUSCULAR HEMOGLOBIN 26 pg (27-31); MEAN CORPUSCULAR HGB CONC 33 g/dL (33-37); MEAN CORPUSCULAR VOLUME 79.1 fL (80-94); MONOCYTES # (AUTO) 0.5 K/uL (0.8-1.0); NEUTROPHILS # (AUTO) 5.8 K/uL (1.8-7.7); NEUTROPHILS % (AUTO) 77.7 % (42.2-75.2); PLATELET COUNT (AUTO) 410 K/uL (140-450); RED BLOOD CELL COUNT(AUTO) 5.06 MIL/uL (4.20-5.40); RED CELL DISTRIBUTION WIDTH 16.1 % (11.6-13.7); WHITE BLOOD COUNT (AUTO) 7.4 K/uL (4.8-10.8)
[2022-09-06 14:25] VITALS: O2SAT 98
--- NOTE | 2022-09-06 14:25 | NUR ---
67YO FEMALE PT BIBA HOME C/O INCREASED L HIP PAIN. PER EMS, PT FOUND ON FLOOR , UNABLE TO AMBULATE. PT REPORTS RECENT HIP SX 1 MONTH AGO. PAIN AT MOST ON MOVEMENT. NO VISIBLE DEFOMITIES NOTED. CAP REFILL <3 THROUGHOUT. PT RECENTLY ADMITTED AND D/C 09/02. DENIES NEW INJURY, NUMBING OR LOSS OF SENSATION. PT AAOX4, HOB POSITIONED PER COMFORT. ON HEALTH EDUCATION COORDINATOR HX: CHF, COPD NKA
[2022-09-06] MEDS ORDERED: HYDROcodone/APAP 5/325 MG 1 TAB TAB PO ONE (14:55)
[2022-09-06] MEDS ORDERED: KETOROLAC 15 MG/ML VIAL IVP ONE (14:55)
[2022-09-06 15:02] LABS: ALBUMIN 3.4 g/dL (3.4-5.0); ANION GAP 13.9 (8-16); ASPARTATE AMINOTRANSFERASE 43 U/L (15-37); CARBON DIOXIDE 25.5 mmol/L (21-32); CHLORIDE 100 mmol/L (98-107); CREATININE 0.9 mg/dL (0.6-1.3); GFR ARICAN-AMERICAN 80 mL/min (>90); GLUCOSE 102 mg/dL (74-106); LIPASE 113 U/L (73-393); POTASSIUM 4.4 mmol/L (3.5-5.1); SODIUM SERUM 135 mmol/L (136-145); TOTAL BILIRUBIN 0.5 mg/dL (0.0-1.0); UREA NITROGEN, BLOOD 9 mg/dL (7-18)
[2022-09-06] MEDS ORDERED: KETOROLAC 15 MG/ML VIAL ONE (16:01)
[2022-09-06] MEDS ORDERED: HYDROcodone/APAP 5/325 MG 1 TAB TAB ONE (16:01)
--- NOTE | 2022-09-06 17:00 | NUR ---
pure wick in place. on high continuous suction.
[2022-09-06 18:50] LABS: APPEARANCE,URINE CLEAR (CLEAR); BILIRUBIN,URINE NEGATIVE (NEGATIVE); BLOOD, URINE TRACE-I (NEGATIVE); COLOR,URINE YELLOW (YELLOW); LEUKOCYTE ESTERASE ,URINE 3+ (NEGATIVE); NITRITE, URINE POSITIVE (NEGATIVE); PH,URINE 6.5 (5.0-9.0); UGLUCOSE NEGATIVE (NEGATIVE)
[2022-09-06 19:13] LABS: TRICHOMONAS,URINE None Seen /HPF (None Seen); YEAST,URINE None Seen /HPF (None Seen)
--- NOTE | 2022-09-06 19:21 | NUR ---
REPORT GIVEN TO JOAN NEVRAEZ. TRANSFER OF CARE AT THIS TIME
[2022-09-06 20:35] VITALS: PULSE 70; RESP 18; O2SAT 100
--- NOTE | 2022-09-06 20:35 | NUR ---
PT WAS [facility] FROM ER VIA [facility] WITH DIAGNOSIS OF GENERAL WEAKNESS. PT IS AOX3-4, BEDREST, ABLE TO VERBALIZE NEEDS AND ABLE TO FOLLOW COMMANDS. PT IS ON ROOM AIR AND ON NPO DIET. PT HAS IV ON LEFT AC GAUGE 20 RUNNING WITH NS AT 85ML/HR. PT SKIN IS INTACT BUT THERE'S SMALL SCAB ON FOREHEAD. PT WAS ORIENTED TO ROOM/HOSPITAL, BED BUTTONS AND CALL LIGHT. ALL SAFETY MEASURES IMPLEMENTED, BED IN LOW POSITION, BED WHEELS ON LOCK AND CALL LIGHT WITH REACH.
--- NOTE | 2022-09-06 20:39 | NUR ---
Patient will be admitted to care of Tanner Parry. Admited to Med Surg. Will go to room 110b. Belongings list completed. Report to Heather NEVAREZ.
--- NOTE | 2022-09-06 22:45 | NUR ---
NOTIFIED DR. GRULLON REGARDING PT HAS LEG AND HIP PAIN WITH PAIN SCALE OF 6/10. DR. GRULLON ORDERED 1MG OF MORPHINE PRN EVERY 6 HRS. ORDER WAS MADE AND CARRIED OUT.
[2022-09-06] MEDS: MORPHINE SULFATE 2 MG/ML SYR IVP PRN (23:50)
--- NOTE | 2022-09-06 23:50 | NUR ---
PRN PAIN MEDICATION WAS GIVEN TO PT DUE TO LEG AND HIP PAIN WITH PAIN SCALE OF 6/10. ALL SAFETY MEASURE IMPLEMENTED. BED IN LOW POSITION, BED WHEELS ON LOCK AND CALL LIGHT WITHIN REACH.
--- NOTE | 2022-09-07 02:00 | NUR ---
PT IS ON SLEEP. CHEST RISE AND FALL SYMMETRICALLY NOTED. RESPIRATION IS EVEN AND UNLABORED. ALL SAFETY MEASURES IMPLEMENTED. BED WHEELS ON LOCK , BED IN LOW POSITION AND CALL LIGHT WITHIN REACH.
[2022-09-07 04:00] VITALS: BP 147/89; PULSE 86; RESP 18; TEMP 97.9; O2SAT 100
--- NOTE | 2022-09-07 04:00 | NUR ---
MORNING CARE DONE TO PT. CHANGED GOWN, CHUCKS, BLANKET AND LINEN. ALL SAFETY MEASURES IMPLEMENTED. BED WHEELS ON LOCK , BED IN LOW POSITION AND CALL LIGHT WITHIN REACH.
[2022-09-07] MEDS: MORPHINE SULFATE 2 MG/ML SYR IVP PRN ×3 (06:16→21:03)
--- NOTE | 2022-09-07 06:16 | NUR ---
PRN PAIN MEDICATION WAS GIVEN TO PT DUE TO HIP PAIN WITH PAIN SCALE OF 6/10. ALL SAFETY MEASURE IMPLEMENTED. BED IN LOW POSITION, BED WHEELS ON LOCK AND CALL LIGHT WITHIN REACH.
--- NOTE | 2022-09-07 07:25 | NUR ---
RECEIVED PT FROM INVENTORY PLANNER FOR CONTINUITY OF CARE. ALERT AND ORIENTED X 4. RESP. EVEN AND UNLABORED. SKIN INTACT. IVF INFUSING WELL. CALL LIGHT KEPT WITHIN REACH. WILL CONTINUE TO MONITOR.
--- NOTE | 2022-09-07 07:27 | NUR ---
PT IS STABLE. ENDORSED PT TO MORNING SHIFT NURSE FOR CONTINUITY OF CARE.
[2022-09-07 08:00] VITALS: BP 146/82; PULSE 83; RESP 18; TEMP 96.9; O2SAT 98
--- NOTE | 2022-09-07 08:00 | NUR ---
Patient's Plan of Care was discussed and reviewed with DIRECTOR OF RECRUITMENT AND ADMISSIONS: ERNESTO ELIZALDE
--- NOTE | 2022-09-07 08:59 | NUR ---
PATIENT HAS BEEN SCREENED AND CATEGORIZED LOW NUTRITION RISK. PATIENT WILL BE SEEN WITHIN 7 DAYS OF ADMISSION. 09/13/[address]
[2022-09-07] MEDS ORDERED: POTASSIUM CHLORIDE 10 MEQ TABER PO PRN (10:50)
--- NOTE | 2022-09-07 12:23 | NUR ---
MORPHINE IVP WAS GIVEN BY MARV NEVAREZ. WASTED 0.5 MG WITNESSED BY MARV NEVAREZ.
[2022-09-07] MEDS: QUEtiapine FUMARATE 100 MG TAB PO SCH (12:36)
[2022-09-07] MEDS: EZETIMIBE 10 MG TAB PO SCH (12:36)
--- NOTE | 2022-09-07 14:44 | NUR ---
RECEIVED ORDER FOR PATIENT TO GO TO SNF FOR PT. FAXED ALL PAPERWORK TO [facility], [facility], AND [facility]. SPOKE WITH YASHIRA AT [facility] [address] [facility] [id number]. PATIENT WAS ACCEPTED IF [facility] CAN GIVE AUTH. SPOKE WITH GUCCI AT [facility] WHO SAID SHE WILL TAKE A LOOK AT THE PACKET ONE THE [facility] IS FAXED IN AND WILL GIVE ME A CALL WITH CONFIRMATION IF PATIENT WAS APPROVED.WILL FOLLOW UP WITH UPDATED Addendum: 09/08/22 at 1105 by SALONI TA CM CALLED RUBY FROM [facility] WHO GAVE ME THE SNF AUTH# [id number] AND TRANSPORT AUTH# [id number]. SPOKE WITH YASHIRA AT [facility] LOCATED AT [address] [facility] [address]. PATIENT WILL BE GOING TO ROOM 103B UNDER DR THAKUR. TRANSPORTATION WAS ARRANGED WITH [employer] WITH A 1500 [address] THREAT ANALYST TIME NURSE MARK AND BROTHER BRIE AWARE OF THE ABOVE INFORMATION
--- NOTE | 2022-09-07 14:51 | NUR ---
RECEIVED NEW ORDER FROM DR. MAHMOOD, REGULAR DIET. ORDER NOTED AND CARRIED OUT.
[2022-09-07 16:00] VITALS: BP 111/59; PULSE 96; RESP 18; TEMP 97.9; O2SAT 100
[2022-09-07] MEDS ORDERED: NACL 0.9% 1,000 ML IV SCH (16:20)
[2022-09-07] MEDS ORDERED: MECLIZINE 25 MG TAB PO PRN (16:20)
[2022-09-07] MEDS: HYDROcodone/APAP 7.5/325 MG 1 TAB PO PRN (17:22)
--- NOTE | 2022-09-07 18:00 | NUR ---
TOLERATED DIET. NO N/V NOTED. NO C/O PAIN AT THIS TIME. CALL LIGHT KEPT WITHIN REACH. WILL CONTINUE TO MONITOR.
--- NOTE | 2022-09-07 18:34 | NUR ---
ROCEPHIN IV WAS GIVEN BY MARV NEVAREZ. TOLERATED WELL.
--- NOTE | 2022-09-07 19:15 | NUR ---
REPORT GIVEN TO YOKER FOR CONTINUITY OF CARE. REMAINS STABLE.
[2022-09-07 20:00] VITALS: PULSE 95; RESP 17; O2SAT 100
--- NOTE | 2022-09-07 20:30 | NUR ---
PATIENT WAS STONECUTTER HAND FOR CT HEAD WITHOUT CONTRAST.
--- NOTE | 2022-09-07 20:45 | NUR ---
PATIENT IS BACK FROM CT SCAN AWAKE ALERT VERBALLY RESPONSIVE. NO SOB NOTED.
[2022-09-07] MEDS ORDERED: PRAMIPEXOLE 0.5 MG TAB PO SCH (21:00)
[2022-09-07] MEDS: methocarbamoL 500 MG TAB PO SCH (21:00)
--- NOTE | 2022-09-07 21:00 | NUR ---
SCHEDULED MEDICATIONS GIVEN PER MD ORDER.
[2022-09-08 04:00] VITALS: BP 134/59; PULSE 74; RESP 18; TEMP 97.9; O2SAT 97
[2022-09-08 05:35] LABS: BASOPHILS % (AUTO) 0.3 % (0.0-2.0); EOSINOPHILS # (AUTO) 0.3 K/uL (0-0.4); EOSINOPHILS % (AUTO) 3.1 % (0.0-4.0); HEMATOCRIT 34.1 % (36-48); HEMOGLOBIN 11.5 g/dL (12.0-16.0); LYMPHOCYTES # (AUTO) 1.2 K/uL (2.5-16.5); LYMPHOCYTES % (AUTO) 15.3 % (20.5-51.1); MEAN CORPUSCULAR HEMOGLOBIN 26 pg (27-31); MEAN CORPUSCULAR HGB CONC 34 g/dL (33-37); MEAN CORPUSCULAR VOLUME 77.7 fL (80-94); MONOCYTES # (AUTO) 0.6 K/uL (0.8-1.0); MONOCYTES % (AUTO) 7.9 % (1.7-9.3); NEUTROPHILS # (AUTO) 5.9 K/uL (1.8-7.7); NEUTROPHILS % (AUTO) 73.4 % (42.2-75.2); PLATELET COUNT (AUTO) 393 K/uL (140-450); RED BLOOD CELL COUNT(AUTO) 4.39 MIL/uL (4.20-5.40); WHITE BLOOD COUNT (AUTO) 8.1 K/uL (4.8-10.8)
[2022-09-08 06:00] LABS: ANION GAP 14.3 (8-16); CARBON DIOXIDE 22.5 mmol/L (21-32); CREATININE 0.8 mg/dL (0.6-1.3); POTASSIUM 3.8 mmol/L (3.5-5.1)
[2022-09-08] MEDS ORDERED: LEVOTHYROXINE 0.025 MG TAB ONE (06:00)
[2022-09-08] MEDS ORDERED: LEVOTHYROXINE 0.112 MG TAB ONE (06:00)
[2022-09-08 06:06] LABS: MAGNESIUM 1.5 mg/dL (1.8-2.4); PHOSPHORUS 3.5 mg/dL (2.5-4.9)
[2022-09-08] MEDS ORDERED: LEVOTHYROXINE 0.025 MG, LEVOTHYROXINE 0.112 MG PO SCH ×2 (06:30)
[2022-09-08] MEDS: MORPHINE SULFATE 2 MG/ML SYR IVP PRN ×2 (06:31→11:37)
--- NOTE | 2022-09-08 07:18 | NUR ---
receive the patient from the shift lab technician sallie Campos in rm [address] [id number] with admitting diagnosis of generalized weakness . will continue to monitor
--- NOTE | 2022-09-08 07:35 | NUR ---
GAVE BEDSIDE REPORT TO NURSE MARK FOR CONTINUITY OF CARE. PATIENT STABLE.
[2022-09-08 07:55] VITALS: PULSE 93; RESP 19; O2SAT 99
[2022-09-08] MEDS ORDERED: NON-FORMULARY ITEM (Levothyroxine Sodium* (Synthroid*) 0.137 MG) PO SCH (09:00)
[2022-09-08] MEDS ORDERED: amLODIPine 5 MG TAB PO SCH (09:00)
[2022-09-08] MEDS ORDERED: ESCITALOPRAM 20 MG TAB PO SCH (09:00)
[2022-09-08] MEDS ORDERED: FUROSEMIDE 20 MG TAB PO SCH (09:00)
[2022-09-08] MEDS ORDERED: ATORVASTATIN 20 MG TAB PO SCH (09:00)
[2022-09-08] MEDS ORDERED: BENZTROPINE 1 MG TAB PO SCH (09:00)
[2022-09-08] MEDS ORDERED: MAG SULF 2000 MG/WATER PREMIX 50 ML IV SCH (09:00)
[2022-09-08] MEDS ORDERED: SPIRONOLACTONE 50 MG TAB PO SCH (09:00)
[2022-09-08] MEDS: methocarbamoL 500 MG TAB PO SCH (09:06)
[2022-09-08] MEDS: EZETIMIBE 10 MG TAB PO SCH (09:06)
[2022-09-08] MEDS: QUEtiapine FUMARATE 100 MG TAB PO SCH (09:07)
[2022-09-08] MEDS: HYDROcodone/APAP 7.5/325 MG 1 TAB PO PRN (10:25)
[2022-09-08] MEDS ORDERED: ROC2I IV (11:20)
--- NOTE | 2022-09-08 14:20 | NUR ---
gave report to [facility] to rm [address] to Najma NEVAREZ [phone] .
--- NOTE | 2022-09-08 15:10 | NUR ---
discharge the patient in a stable condition with EMT . no compalin of pain . no sign and symtoms of respiratory distress .
--- NOTE | 2022-09-08 17:10 | NUR ---
PHYSICAL THERAPY CO-SIGN The Physical Therapy Progress Notes documented by Environmental Sustainability Manager have been reviewed. Reviewed/Co-Signed by: Emili Saunders PT Documentation Done by:MAHNAZ HILL RUBBER CUTTING MACHINE TENDER Addendum: 09/08/22 at 1711 by Emili Saunders PT Amended: Links added.
== END 2022-09-08 15:35 | DRG 74 ==
LOC: MED 13:46 → MMU 17:10 → MTU 17:10
PROVIDERS: ADMIT Family Medicine; ATTEND Family Medicine
DX: G90.8 Other disorders of autonomic nervous system (principal); M62.82 Rhabdomyolysis; N39.0 Urinary tract infection, site not specified; E87.1 Hypo-osmolality and hyponatremia; M62.81 Muscle weakness (generalized); I50.9 Heart failure, unspecified; E86.0 Dehydration; E83.42 Hypomagnesemia; J44.9 Chronic obstructive pulmonary disease, unspecified; Z85.828 Personal history of other malignant neoplasm of skin
CPT/HCPCS: 36415; 70450; 71045; 73502; 80048; 80053; 81001; 82550; 82553; 83690; 83735; 84100; 84484; 85025; 87081; 87086; 93005; 93880; 96361; 96374; 97110; 97112; 97530; 99285; J0696; J1885; J2270; J3475; J7060; Q0092

== ENCOUNTER 2022-10-27 07:29 | Inpatient (IN) | payer OTHER ==
[~2022-10-27] VITALS: Ht 157.5 cm; Wt 65.6 kg
[~2022-10-27 07:29] MED LIST changes: -EZET10TA14 PO; +EZET10TA84 PO; +ROC2I IV
[2022-10-27 07:37] VITALS: BP 133/91; PULSE 89; RESP 16; TEMP 98.4; O2SAT 97
[2022-10-27] MEDS ORDERED: KETOROLAC 15 MG/ML VIAL IVP ONE (07:45)
[2022-10-27] MEDS ORDERED: NACL 0.9% 1,000 ML IV ONE ×2 (07:45→12:20)
[2022-10-27 08:22] LABS: BASOPHILS % (AUTO) 0.2 % (0.0-2.0); EOSINOPHILS # (AUTO) 0.1 K/uL (0-0.4); EOSINOPHILS % (AUTO) 0.6 % (0.0-4.0); HEMATOCRIT 34.1 % (36-48); HEMOGLOBIN 11.5 g/dL (12.0-16.0); LYMPHOCYTES # (AUTO) 1.5 K/uL (2.5-16.5); LYMPHOCYTES % (AUTO) 14.3 % (20.5-51.1); MEAN CORPUSCULAR HEMOGLOBIN 27 pg (27-31); MEAN CORPUSCULAR HGB CONC 34 g/dL (33-37); MEAN CORPUSCULAR VOLUME 80.3 fL (80-94); MONOCYTES # (AUTO) 0.8 K/uL (0.8-1.0); MONOCYTES % (AUTO) 7.5 % (1.7-9.3); NEUTROPHILS # (AUTO) 8.3 K/uL (1.8-7.7); NEUTROPHILS % (AUTO) 77.4 % (42.2-75.2); PLATELET COUNT (AUTO) 342 K/uL (140-450); RED BLOOD CELL COUNT(AUTO) 4.25 MIL/uL (4.20-5.40); RED CELL DISTRIBUTION WIDTH 15.9 % (11.6-13.7); WHITE BLOOD COUNT (AUTO) 10.8 K/uL (4.8-10.8)
[2022-10-27 09:13] LABS: ALBUMIN 3.3 g/dL (3.4-5.0); CALCIUM 8.8 mg/dL (8.5-10.1); CARBON DIOXIDE 27.2 mmol/L (21-32); CREATININE 0.9 mg/dL (0.6-1.3); POTASSIUM 3.2 mmol/L (3.5-5.1); TOTAL PROTEIN, SERUM 6.4 g/dL (6.4-8.2)
[2022-10-27 09:21] LABS: THYROID STIMULATING HORMONE 0.18 uIU/mL (0.34-3.74)
[2022-10-27 09:27] LABS: CREATINE KINASE, TOTAL 586 U/L (26-192)
[2022-10-27] MEDS ORDERED: MAGNESIUM OXIDE 400 MG TAB PO ONE (10:25)
[2022-10-27] MEDS ORDERED: POTASSIUM CHLORIDE 20% 40 MEQ/15 ML UDC PO ONE (10:25)
[2022-10-27] MEDS ORDERED: NACL 0.9% 500 ML IV ONE (10:25)
[2022-10-27 12:24] LABS: BILIRUBIN,URINE NEGATIVE (NEGATIVE); BLOOD, URINE 1+ (NEGATIVE); COLOR,URINE YELLOW (YELLOW); LEUKOCYTE ESTERASE ,URINE 2+ (NEGATIVE); NITRITE, URINE POSITIVE (NEGATIVE); PROTEIN,URINE NEGATIVE (NEGATIVE); UGLUCOSE NEGATIVE (NEGATIVE)
[2022-10-27 12:28] LABS: APPEARANCE,URINE HAZY (CLEAR)
[2022-10-27 12:33] LABS: BACTERIA,URINE 4+ /HPF (None Seen); CALCIUM OXALATE CRYSTALS,UR None Seen /HPF (None Seen); CYSTINE CRYSTALS,URINE None Seen /HPF (None Seen); MUCUS,URINE None Seen /LPF (None Seen); SQUAMOUS EPITHELIAL CELL,UR 4-10 (MOD) /LPF (0-3 (FEW)); TRICHOMONAS,URINE None Seen /HPF (None Seen); TRIPLE PHOSPHATE CRYSTAL,UR None Seen /HPF (None Seen); URIC ACID CRYSTALS,URINE None Seen /HPF (None Seen); WBC,URINE 16-25 (MOD) /HPF (0-5); WHITE BLOOD CELL CASTS,URINE None Seen /LPF (None Seen); YEAST,URINE Few /HPF (None Seen)
[2022-10-27 12:34] LABS: COARSE GRANULAR CASTS,URINE None Seen /LPF (None Seen); FATTY CASTS,URINE None Seen /LPF (None Seen); FINE GRANULAR CASTS,URINE None Seen /LPF (None Seen); HYALINE CASTS, URINE None Seen /LPF (None Seen); OTHER CASTS, URINE None Seen /LPF (None Seen); OTHER CRYSTALS,URINE None Seen /HPF (None Seen); RED BLOOD CELL CASTS,URINE None Seen /LPF (None Seen); URINE AMORPHOUS PHOSPHATES None Seen /HPF (None Seen); URINE AMORPHOUS URATE None Seen /HPF (None Seen); WAXY CASTS,URINE None Seen /LPF (None Seen)
[2022-10-27] MEDS ORDERED: DOCUSATE SODIUM 100 MG GELCAP PO PRN (13:25)
[2022-10-27] MEDS ORDERED: ZOLPIDEM 5 MG TAB PO PRN (13:25)
[2022-10-27] MEDS ORDERED: guaiFENesin DM 200/20 MG-10 ML 10 ML UDC PO PRN (13:25)
[2022-10-27] MEDS ORDERED: ACETAMINOPHEN 325 MG TAB PO PRN (13:25)
[2022-10-27] MEDS ORDERED: POTASSIUM CHLORIDE 10 MEQ TABER PO PRN (13:25)
[2022-10-27] MEDS ORDERED: ONDANSETRON 4 MG/2 ML VIAL IM/IVP PRN (13:25)
[2022-10-27 14:39] LABS: INR 0.99 (0.8-1.2); PARTIAL THROMBOPLASTIN TIME 24.4 secs (22-35.6); PROTHROMBIN TIME 10.4 secs (10.8-13.4)
[2022-10-27 14:51] LABS: CHOL/HDL RATIO 2.4 (1-4.5); FREE T4 (FREE THYROXINE) 1.38 ng/dL (0.76-1.46); MAGNESIUM 1.6 mg/dL (1.8-2.4); PHOSPHORUS 2.5 mg/dL (2.5-4.9); THYROID STIMULATING HORMONE 0.15 uIU/mL (0.34-3.74)
[2022-10-27 15:03] VITALS: PULSE 68; RESP 20; O2SAT 99
[2022-10-27 16:00] VITALS: BP 132/65; PULSE 68; RESP 20; TEMP 97.1; O2SAT 99
[2022-10-27] MEDS: HYDROcodone/APAP 7.5/325 MG 1 TAB PO PRN ×2 (17:08→21:26)
[2022-10-27 20:00] VITALS: BP 102/61; PULSE 89; RESP 16; TEMP 96.3; O2SAT 99
[2022-10-28] MEDS: HYDROcodone/APAP 7.5/325 MG 1 TAB PO PRN ×3 (01:30→10:03)
[2022-10-28 04:00] VITALS: BP 121/63; PULSE 78; RESP 15; TEMP 97.9; O2SAT 98
[2022-10-28 05:27] LABS: BASOPHILS % (AUTO) 0.4 % (0.0-2.0); EOSINOPHILS # (AUTO) 0.4 K/uL (0-0.4); EOSINOPHILS % (AUTO) 4.3 % (0.0-4.0); HEMATOCRIT 34.5 % (36-48); HEMOGLOBIN 11.5 g/dL (12.0-16.0); LYMPHOCYTES # (AUTO) 2.3 K/uL (2.5-16.5); LYMPHOCYTES % (AUTO) 26.1 % (20.5-51.1); MEAN CORPUSCULAR HEMOGLOBIN 27 pg (27-31); MEAN CORPUSCULAR HGB CONC 33 g/dL (33-37); MEAN CORPUSCULAR VOLUME 81.5 fL (80-94); MONOCYTES # (AUTO) 0.6 K/uL (0.8-1.0); MONOCYTES % (AUTO) 7.5 % (1.7-9.3); NEUTROPHILS # (AUTO) 5.3 K/uL (1.8-7.7); NEUTROPHILS % (AUTO) 61.7 % (42.2-75.2); PLATELET COUNT (AUTO) 287 K/uL (140-450); RED BLOOD CELL COUNT(AUTO) 4.23 MIL/uL (4.20-5.40); WHITE BLOOD COUNT (AUTO) 8.6 K/uL (4.8-10.8)
[2022-10-28 05:32] LABS: ANION GAP 8.8 (8-16); CALCIUM 8.5 mg/dL (8.5-10.1); CARBON DIOXIDE 24.6 mmol/L (21-32); CREATININE 0.7 mg/dL (0.6-1.3); POTASSIUM 3.4 mmol/L (3.5-5.1)
[2022-10-28] MEDS ORDERED: MAG SULF 2000 MG/WATER PREMIX 50 ML IV PRN (07:30)
[2022-10-28 08:00] VITALS: BP 116/66; PULSE 68; PULSE 77; RESP 18; RESP 20; TEMP 97.7; O2SAT 98; O2SAT 99
[2022-10-28 08:08] LABS: HEMOGLOBIN A1C 5.4 % (4.8-5.6); T4 (THYROXINE) 9.5 ug/dL (4.5-12.0)
[2022-10-28] MEDS ORDERED: FUROSEMIDE 20 MG TAB PO SCH ×2 (08:19→09:00)
[2022-10-28] MEDS ORDERED: LEVOTHYROXINE 0.025 MG, LEVOTHYROXINE 0.112 MG PO SCH ×2 (08:22)
[2022-10-28] MEDS: PANTOPRAZOLE 40 MG TABEC PO SCH (08:55)
[2022-10-28] MEDS: SPIRONOLACTONE 50 MG TAB PO SCH (08:55)
[2022-10-28] MEDS: ATORVASTATIN 20 MG TAB PO SCH (08:56)
[2022-10-28] MEDS: ESCITALOPRAM 20 MG TAB PO SCH (08:57)
[2022-10-28] MEDS ORDERED: ATORVASTATIN 20 MG TAB PO SCH (09:00)
[2022-10-28] MEDS ORDERED: amLODIPine 5 MG TAB PO SCH (09:00)
[2022-10-28] MEDS ORDERED: ESCITALOPRAM 20 MG TAB PO SCH (09:00)
[2022-10-28] MEDS ORDERED: SPIRONOLACTONE 50 MG TAB PO SCH (09:00)
[2022-10-28] MEDS ORDERED: NON-FORMULARY ITEM (Levothyroxine Sodium* (Synthroid*) 0.137 MG) PO SCH (09:00)
[2022-10-28] MEDS ORDERED: QUEtiapine FUMARATE 100 MG TAB PO SCH (09:00)
[2022-10-28] MEDS ORDERED: LEVOTHYROXINE 0.112 MG TAB ONE (09:55)
[2022-10-28] MEDS ORDERED: LEVOTHYROXINE 0.025 MG TAB ONE (09:55)
[2022-10-28] MEDS: methocarbamoL 500 MG TAB PO SCH ×2 (10:01→21:59)
[2022-10-28] MEDS: OLANZapine 5 MG TAB PO SCH (10:01)
[2022-10-28] MEDS ORDERED: FOAM DRESSING TP PRN (11:40)
[2022-10-28] MEDS ORDERED: Z-GUARD PASTE TP PRN (11:40)
[2022-10-28] MEDS: Z-GUARD PASTE TP SCH (13:00)
[2022-10-28] MEDS: FOAM DRESSING TP SCH (13:00)
[2022-10-28] MEDS: MORPHINE SULFATE 4 MG/ML SYR IVP PRN (15:12)
[2022-10-28 16:00] VITALS: BP 125/60; PULSE 83; RESP 18; TEMP 97.3; O2SAT 97
[2022-10-28] MEDS: PRAMIPEXOLE 0.5 MG TAB PO SCH (17:05)
[2022-10-28 20:00] VITALS: BP 117/36; PULSE 84; RESP 18; TEMP 97.7; O2SAT 97
[2022-10-29] MEDS: MORPHINE SULFATE 4 MG/ML SYR IVP PRN ×3 (01:16→20:12)
[2022-10-29] MEDS: Z-GUARD PASTE TP SCH ×2 (01:23→13:00)
[2022-10-29 04:00] VITALS: BP 124/64; PULSE 86; RESP 18; TEMP 98; O2SAT 99
[2022-10-29] MEDS: HYDROcodone/APAP 7.5/325 MG 1 TAB PO PRN ×2 (04:18→10:15)
[2022-10-29 04:52] LABS: BASOPHILS % (AUTO) 0.3 % (0.0-2.0); EOSINOPHILS # (AUTO) 0.4 K/uL (0-0.4); EOSINOPHILS % (AUTO) 4.8 % (0.0-4.0); HEMATOCRIT 32.5 % (36-48); HEMOGLOBIN 10.9 g/dL (12.0-16.0); LYMPHOCYTES # (AUTO) 1.7 K/uL (2.5-16.5); LYMPHOCYTES % (AUTO) 18.9 % (20.5-51.1); MEAN CORPUSCULAR HEMOGLOBIN 27 pg (27-31); MEAN CORPUSCULAR HGB CONC 34 g/dL (33-37); MEAN CORPUSCULAR VOLUME 81.9 fL (80-94); MONOCYTES # (AUTO) 0.7 K/uL (0.8-1.0); MONOCYTES % (AUTO) 7.3 % (1.7-9.3); NEUTROPHILS # (AUTO) 6.3 K/uL (1.8-7.7); NEUTROPHILS % (AUTO) 68.7 % (42.2-75.2); PLATELET COUNT (AUTO) 316 K/uL (140-450); RED BLOOD CELL COUNT(AUTO) 3.96 MIL/uL (4.20-5.40); RED CELL DISTRIBUTION WIDTH 16.4 % (11.6-13.7); WHITE BLOOD COUNT (AUTO) 9.2 K/uL (4.8-10.8)
[2022-10-29 05:13] LABS: ANION GAP 8.6 (8-16); CALCIUM 8.5 mg/dL (8.5-10.1); CARBON DIOXIDE 27.4 mmol/L (21-32); CREATININE 0.8 mg/dL (0.6-1.3)
[2022-10-29] MEDS ORDERED: LEVOTHYROXINE 0.025 MG TAB ONE ×2 (05:36→05:51)
[2022-10-29] MEDS ORDERED: LEVOTHYROXINE 0.112 MG TAB ONE (05:52)
[2022-10-29] MEDS: LEVOTHYROXINE 0.025 MG, LEVOTHYROXINE 0.112 MG PO SCH ×2 (05:55)
[2022-10-29] MEDS ORDERED: LEVOTHYROXINE 0.112 MG TAB PO SCH (07:00)
[2022-10-29 08:00] VITALS: BP 117/61; PULSE 90; RESP 17; RESP 18; TEMP 98; O2SAT 99
[2022-10-29] MEDS ORDERED: FUROSEMIDE 20 MG TAB PO SCH (09:00)
[2022-10-29] MEDS: ATORVASTATIN 20 MG TAB PO SCH (09:00)
[2022-10-29] MEDS: SPIRONOLACTONE 50 MG TAB PO SCH (09:58)
[2022-10-29] MEDS: methocarbamoL 500 MG TAB PO SCH ×2 (09:58→20:11)
[2022-10-29] MEDS: OLANZapine 5 MG TAB PO SCH (09:59)
[2022-10-29] MEDS: PANTOPRAZOLE 40 MG TABEC PO SCH (09:59)
[2022-10-29] MEDS: FUROSEMIDE 20 MG TAB PO SCH (10:00)
[2022-10-29] MEDS: ESCITALOPRAM 20 MG TAB PO SCH (10:00)
[2022-10-29] MEDS: FOAM DRESSING TP SCH (13:00)
[2022-10-29 14:39] VITALS: BP 98/53; PULSE 75; RESP 19; TEMP 98.9; O2SAT 99
[2022-10-29] MEDS: LEVOFLOXACIN 500 MG/D5W PREMIX 100 ML IV SCH (15:10)
[2022-10-29] MEDS: PRAMIPEXOLE 0.5 MG TAB PO SCH (17:44)
[2022-10-29 20:00] VITALS: BP 108/52; PULSE 79; RESP 18; TEMP 98.3; O2SAT 99
[2022-10-30] MEDS: Z-GUARD PASTE TP SCH (00:25)
[2022-10-30] MEDS: MORPHINE SULFATE 4 MG/ML SYR IVP PRN ×2 (02:26→08:48)
[2022-10-30 05:27] VITALS: BP 112/71; PULSE 77; RESP 18; TEMP 97.7; O2SAT 98
[2022-10-30 05:42] LABS: BASOPHILS % (AUTO) 0.3 % (0.0-2.0); EOSINOPHILS # (AUTO) 0.4 K/uL (0-0.4); EOSINOPHILS % (AUTO) 6.3 % (0.0-4.0); HEMATOCRIT 34.6 % (36-48); HEMOGLOBIN 11.5 g/dL (12.0-16.0); LYMPHOCYTES # (AUTO) 1.4 K/uL (2.5-16.5); MEAN CORPUSCULAR HEMOGLOBIN 27 pg (27-31); MEAN CORPUSCULAR HGB CONC 33 g/dL (33-37); MEAN CORPUSCULAR VOLUME 82.3 fL (80-94); MONOCYTES # (AUTO) 0.6 K/uL (0.8-1.0); MONOCYTES % (AUTO) 9.1 % (1.7-9.3); NEUTROPHILS # (AUTO) 4.2 K/uL (1.8-7.7); NEUTROPHILS % (AUTO) 63.3 % (42.2-75.2); PLATELET COUNT (AUTO) 311 K/uL (140-450); RED BLOOD CELL COUNT(AUTO) 4.21 MIL/uL (4.20-5.40); RED CELL DISTRIBUTION WIDTH 16.2 % (11.6-13.7); WHITE BLOOD COUNT (AUTO) 6.6 K/uL (4.8-10.8)
[2022-10-30 05:58] LABS: ANION GAP 11.7 (8-16); CALCIUM 8.8 mg/dL (8.5-10.1); CARBON DIOXIDE 26.1 mmol/L (21-32); CREATININE 0.8 mg/dL (0.6-1.3); POTASSIUM 3.8 mmol/L (3.5-5.1)
[2022-10-30] MEDS ORDERED: LEVOTHYROXINE 0.025 MG TAB ONE (06:35)
[2022-10-30] MEDS ORDERED: LEVOTHYROXINE 0.112 MG TAB ONE (06:35)
[2022-10-30] MEDS: LEVOTHYROXINE 0.025 MG, LEVOTHYROXINE 0.112 MG PO SCH ×2 (06:39)
[2022-10-30 08:00] VITALS: PULSE 76; RESP 16; O2SAT 98
[2022-10-30] MEDS: OLANZapine 5 MG TAB PO SCH (08:44)
[2022-10-30] MEDS: PANTOPRAZOLE 40 MG TABEC PO SCH (08:45)
[2022-10-30] MEDS: methocarbamoL 500 MG TAB PO SCH (08:45)
[2022-10-30] MEDS: ATORVASTATIN 20 MG TAB PO SCH (08:46)
[2022-10-30] MEDS: SPIRONOLACTONE 50 MG TAB PO SCH (08:46)
[2022-10-30] MEDS: ESCITALOPRAM 20 MG TAB PO SCH (08:46)
[2022-10-30] MEDS: FUROSEMIDE 20 MG TAB PO SCH (08:47)
[2022-10-30] MEDS ORDERED: BENZTROPINE 1 MG TAB PO SCH (09:00)
[2022-10-30] MEDS ORDERED: CIPR500T4 PO (12:17)
[2022-10-30] MEDS: FOAM DRESSING TP SCH (13:17)
[2022-10-30 14:17] VITALS: BP 122/62; PULSE 98; RESP 16; TEMP 98
[2022-10-30] MEDS: HYDROcodone/APAP 7.5/325 MG 1 TAB PO PRN (15:07)
[2022-10-30] MEDS: LEVOFLOXACIN 500 MG/D5W PREMIX 100 ML IV SCH (15:07)
== END 2022-10-30 15:25 | DRG 872 ==
LOC: MED 07:29 → MTU 12:24
PROVIDERS: ADMIT Family Medicine; ATTEND Family Medicine
DX: A41.9 Sepsis, unspecified organism (principal); M62.82 Rhabdomyolysis; N39.0 Urinary tract infection, site not specified; E87.1 Hypo-osmolality and hyponatremia; E44.1 Mild protein-calorie malnutrition; E87.6 Hypokalemia; D50.9 Iron deficiency anemia, unspecified; E86.0 Dehydration; E03.9 Hypothyroidism, unspecified; J44.9 Chronic obstructive pulmonary disease, unspecified; E78.5 Hyperlipidemia, unspecified; E05.80 Other thyrotoxicosis without thyrotoxic crisis or storm; E83.42 Hypomagnesemia; Z85.828 Personal history of other malignant neoplasm of skin; Z68.26 Body mass index [BMI] 26.0-26.9, adult
CPT/HCPCS: 36415; 71045; 73502; 80048; 80053; 81001; 82150; 82550; 82553; 83036; 83690; 83735; 83880; 84100; 84436; 84439; 84443; 84479; 84484; 85025; 85610; 85730; 87081; 87086; 96361; 96374; 97110; 97112; 97116; 97163-GP; 97530; 99285; J0696; J1885; J1956; J2270; J3475; J7060